=== PATIENT | female | born 1965 | race Caucasian/White ===

== ENCOUNTER 2016-09-06 19:57 | Emergency (ER) | payer MEDICAID ==
[~2016-09-06] VITALS: Ht 170.2 cm; Wt 92.4 kg
[~2016-09-06 19:57] MED LIST: AZIT-14 PO; BENZ2AMP4; CARV3.122 PO; CIPR400V6 PO; DOCU100C8 PO; GLYB1.252 PO; HALO5AMP3; HYDR-3144 PO; INSU100V8 SQ; LEVO100C2 PO; LORA-445 PO; METF10002 PO; PARO10TA24; [UNRECOGNIZED DRUG - CODE]
[2016-09-06] MEDS ORDERED: LORazepam 1MG TABLET PO ONE (20:30)
[2016-09-06] MEDS ORDERED: ASPIRIN 325 MG TABLET PO ONE (20:30)
[2016-09-06] MEDS ORDERED: LORazepam 1MG TABLET ONE (20:48)
[2016-09-06] MEDS ORDERED: ASPIRIN 325 MG TABLET ONE (20:50)
[2016-09-06 21:15] VITALS: BP 130/93
== END 2016-09-06 21:20 | disposition home or self-care (01) ==
LOC: ED 21:14
DX: S50.01XA Contusion of right elbow, initial encounter (principal); F41.1 Generalized anxiety disorder; F43.10 Post-traumatic stress disorder, unspecified; F15.10 Other stimulant abuse, uncomplicated; E07.9 Disorder of thyroid, unspecified; W45.8XXA Other foreign body or object entering through skin, initial encounter; Y93.89 Activity, other specified; Y92.009 Unspecified place in unspecified non-institutional (private) residence as the place of occurrence of the external cause; Y99.8 Other external cause status; Z88.1 Allergy status to other antibiotic agents; Z88.6 Allergy status to analgesic agent; Z88.8 Allergy status to other drugs, medicaments and biological substances
CPT/HCPCS: 99284

== ENCOUNTER 2017-03-13 20:26 | Emergency (ER) | payer MEDICAID ==
[~2017-03-13] VITALS: Ht 170.2 cm; Wt 93.0 kg
[~2017-03-13 20:26] MED LIST changes: -AZIT-14 PO; +AZIT250T89 PO; +DOCU100C33 PO; -DOCU100C8 PO; -HYDR-3144 PO; +HYDR-3245 PO; -PARO10TA24; +PARO10TA56
[2017-03-13] MEDS ORDERED: IBUPROFEN 200 MG TABLET ONE (21:11)
[2017-03-13 21:16] VITALS: BP 128/82
[2017-03-13] MEDS ORDERED: IBUPROFEN 200 MG TABLET PO ONE (21:30)
[2017-03-13 21:31] LABS: HEMATOCRIT 41.5 % (34.6-47.8); HEMOGLOBIN 13.9 g/dL (11.7-16.4); WHITE BLOOD COUNT 8.6 x10^3/uL (3.4-10)
[2017-03-13] MEDS ORDERED: DIPHENHYDRAMINE 25 MG CAPSULE ONE (21:57)
[2017-03-13] MEDS ORDERED: DIPHENHYDRAMINE 25 MG CAPSULE PO ONE (22:00)
== END 2017-03-13 22:11 | disposition home or self-care (01) ==
LOC: ED 21:02
DX: N75.1 Abscess of Bartholin's gland (principal)
CPT/HCPCS: 36415; 81003; 85025; 99284; Q0163

== ENCOUNTER 2018-05-15 22:04 | Emergency (ER) | payer MEDICAID ==
[~2018-05-15] VITALS: Ht 170.2 cm; Wt 104.7 kg
[2018-05-15 22:09] VITALS: BP 149/87
[2018-05-15] MEDS ORDERED: HALO5TAB5 PO (23:09)
[2018-05-15] MEDS ORDERED: BENZ-17 PO (23:09)
[2018-05-15] MEDS ORDERED: ATOR10TA9 PO (23:09)
[2018-05-15] MEDS ORDERED: NAPR-856 PO (23:09)
[2018-05-15] MEDS ORDERED: LEVO137T3 PO (23:09)
[2018-05-15] MEDS ORDERED: LORazepam 1MG TABLET ONE (23:16)
[2018-05-15] MEDS ORDERED: ZIPRASIDONE 20 MG INJ IM ONE ×2 (23:16→23:30)
[2018-05-15] MEDS ORDERED: LORazepam 1MG TABLET PO ONE (23:30)
[2018-05-15 23:38] LABS: BASOPHILS # (AUTO) 0.05 x10^3/uL (0-0.1); BASOPHILS % (AUTO) 0 % (0-1); EOSINOPHILS # (AUTO) 0.11 x10^3/uL (0-0.4); EOSINOPHILS % (AUTO) 1 % (1-7); LYMPHOCYTES # (AUTO) 2.85 x10^3/uL (1-3.4); LYMPHOCYTES % (AUTO) 25 % (22-44); MD NO; MEAN CORPUSCULAR HEMOGLOBIN 29.3 pg (27.0-34.8); MEAN CORPUSCULAR HGB CONC 33.9 g/dL (32.4-35.8); MEAN CORPUSCULAR VOLUME 86.3 fL (80-100); MEAN PLATELET VOLUME 6.8 fL (7.4-10.4); MONOCYTES # (AUTO) 0.69 x10^3/uL (0.2-0.8); MONOCYTES % (AUTO) 6 % (2-9); NEUTROPHILS # (AUTO) 7.88 x10^3/uL (1.8-6.8); NEUTROPHILS % (AUTO) 68 % (42-75); PLATELET COUNT 355 x10^3/uL (130-400); RED BLOOD COUNT 5.21 x10^6/uL (3.82-5.3); RED CELL DISTRIBUTION WIDTH 15.2 % (9.6-15.2)
[2018-05-15 23:48] LABS: ALANINE AMINOTRANSFERASE 38 U/L (12-78); ALBUMIN 3.2 g/dL (3.4-5.0); ANION GAP 5 mmol/L (5-15); CALCIUM 8.5 mg/dL (8.5-10.1); CHLORIDE 108 mmol/L (98-107); CREATININE 0.93 mg/dL (0.55-1.02)
[2018-05-15 23:51] LABS: ALKALINE PHOSPHATASE 105 U/L (45-117); BILIRUBIN,TOTAL 0.2 mg/dL (0.2-1.0)
== END 2018-05-16 01:13 | disposition home or self-care (01) ==
LOC: ED 22:17
DX: F41.1 Generalized anxiety disorder (principal); F15.20 Other stimulant dependence, uncomplicated; F43.12 Post-traumatic stress disorder, chronic; J44.9 Chronic obstructive pulmonary disease, unspecified; E78.00 Pure hypercholesterolemia, unspecified
CPT/HCPCS: 36415; 80053; 85025; 96372; 99283; J3486

== ENCOUNTER 2018-06-14 22:20 | Emergency (ER) | payer MEDICAID ==
[~2018-06-14] VITALS: Ht 170.2 cm; Wt 106.5 kg
[~2018-06-14 22:20] MED LIST changes: +ATOR10TA9 PO; +BENZ-17 PO; +HALO5TAB5 PO; +LEVO137T3 PO; +NAPR-856 PO
[2018-06-14 22:21] VITALS: BP 124/82
[2018-06-14] MEDS ORDERED: ZIPRASIDONE 20 MG INJ IM ONE ×2 (22:44→23:00)
--- NOTE | 2018-06-14 22:56 | NUR ---
PT MEDICATED WITH GEODON. PT REQUESTING ATIVAN. MD AWARE AND WILL NOT BE PRESCRIBING IT.
--- NOTE | 2018-06-14 23:25 | NUR ---
Patient given discharge instructions and they have confirmed that they understand the instructions. Patient ambulatory with steady gait.
== END 2018-06-14 23:28 | disposition home or self-care (01) ==
LOC: ED 22:50
DX: F41.1 Generalized anxiety disorder (principal); F15.10 Other stimulant abuse, uncomplicated; J44.9 Chronic obstructive pulmonary disease, unspecified
CPT/HCPCS: 96372; 99284; J3486

== ENCOUNTER → 2019-07-09 | Outpatient (CLI) | payer MEDICAID | END | disposition home or self-care (01) | LOC: CVU 07:09 | PROVIDERS: ATTEND Surgery | DX: I83.813 Varicose veins of bilateral lower extremities with pain (principal) | CPT/HCPCS: 93970 ==

== ENCOUNTER 2019-11-18 18:11 | Emergency (ER) | payer MEDICAID ==
[~2019-11-18] VITALS: Ht 172.7 cm; Wt 108.9 kg
--- NOTE | 2019-11-18 18:21 | NUR ---
PT AMBULATED BACK TO ROOM AND THEN TO BR WITHOUT DIFFICULTY. INSTRUCTED ON CLEAN CATCH URINE SAMPLE.
[2019-11-18 18:38] LABS: MICROSCOPIC NOT IND
[2019-11-18] MEDS ORDERED: KETOROLAC 30 MG/1 ML ONE ×2 (18:44→19:01)
[2019-11-18] MEDS ORDERED: CYCLOBENZAPRINE 10 MG TABLET ONE (18:44)
--- NOTE | 2019-11-18 18:46 | NUR ---
TASK RN: PT OFF FLOOR TO XRAY
[2019-11-18] MEDS ORDERED: KETOROLAC 30 MG/1 ML IM ONE (19:00)
[2019-11-18] MEDS ORDERED: CYCLOBENZAPRINE 10 MG TABLET PO ONE (19:00)
[2019-11-18 20:41] VITALS: BP 131/82
--- NOTE | 2019-11-18 20:43 | NUR ---
PT HAS BEEN RESTING IN [facility], STATES SHE FEELS A LITTLE BETTER AFTER MEDS. D/C INSTRUCTIONS, MEDS & F/U APPT RV'WD WITH PT, SHE VERBALIZES UNDERSTANDING. RX GIVEN X2. PT AMBULATED OUT OF ED WITHOUT DIFFICULTY.
== END 2019-11-18 20:44 | disposition home or self-care (01) ==
LOC: ED 20:35
DX: S39.012A Strain of muscle, fascia and tendon of lower back, initial encounter (principal); J44.9 Chronic obstructive pulmonary disease, unspecified; X58.XXXA Exposure to other specified factors, initial encounter; Y93.89 Activity, other specified; Y92.89 Other specified places as the place of occurrence of the external cause; Y99.8 Other external cause status
CPT/HCPCS: 72110; 81003; 96372; 99284; J1885

== ENCOUNTER 2019-11-30 10:30 | Emergency (ER) | payer MEDICAID ==
[~2019-11-30] VITALS: Ht 170.2 cm; Wt 110.0 kg
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
[2019-11-30 12:16] LABS: BASOPHILS # (AUTO) 0.04 x10^3/uL (0-0.1); BASOPHILS % (AUTO) 1 % (0-1); EOSINOPHILS % (AUTO) 1 % (1-7); LYMPHOCYTES # (AUTO) 1.97 x10^3/uL (1-3.4); LYMPHOCYTES % (AUTO) 26 % (22-44); MD NO; MEAN CORPUSCULAR HEMOGLOBIN 29.1 pg (27.0-34.8); MEAN CORPUSCULAR HGB CONC 32.9 g/dL (32.4-35.8); MEAN CORPUSCULAR VOLUME 88.3 fL (80-100); MEAN PLATELET VOLUME 7.7 fL (7.4-10.4); MONOCYTES # (AUTO) 0.65 x10^3/uL (0.2-0.8); MONOCYTES % (AUTO) 9 % (2-9); NEUTROPHILS # (AUTO) 4.87 x10^3/uL (1.8-6.8); NEUTROPHILS % (AUTO) 64 % (42-75); PLATELET COUNT 316 x10^3/uL (130-400); RED BLOOD COUNT 4.84 x10^6/uL (3.82-5.3); RED CELL DISTRIBUTION WIDTH 14.8 % (9.6-15.2)
[2019-11-30 12:24] LABS: ALANINE AMINOTRANSFERASE 25 U/L (12-78); ALBUMIN 3.5 g/dL (3.4-5.0); CALCIUM 9.7 mg/dL (8.5-10.1); CHLORIDE 110 mmol/L (98-107); CREATININE 0.83 mg/dL (0.55-1.02); SALICYLATE LEVEL 2.1 mg/dL (2.8-20.0)
--- NOTE | 2019-11-30 12:26 | NUR ---
ERICA COTTER AT BEDSIDE FOR EVAL AT THIS TIME.
[2019-11-30 12:30] LABS: ALKALINE PHOSPHATASE 97 U/L (45-117); BILIRUBIN,TOTAL 0.2 mg/dL (0.2-1.0)
[2019-11-30] MEDS ORDERED: NICOTINE 21 MG/24 HR PATCH.TD24 TD ONE (12:30)
[2019-11-30 12:31] LABS: ANION GAP 3 mmol/L (5-15)
[2019-11-30] MEDS ORDERED: LORazepam 1MG TABLET ONE (12:37)
[2019-11-30] MEDS ORDERED: NICOTINE 21 MG/24 HR PATCH.TD24 ONE (12:37)
[2019-11-30 12:54] VITALS: BP 165/103
--- NOTE | 2019-11-30 12:56 | NUR ---
PER ERICA COTTER PT MEDICATED ORDERED FOR ANXIETY. PT REPORTS SHE HAS SEVERAL DOCTOR'S APPOINTMENTS COMING UP INCLUDING A PSYCH CONSULT ON MONDAY. PT STATES "I THINK I'LL BE FINE UNTIL." PT DENIES SI/HI. PT AO X 4. SKIN PWD. RESP EVEN AND UNLABORED. PT ON CONT BP AND SPO2 MONITORS. CALL LIGHT WITHIN REACH. WILL CONT TO MONITOR PT.
[2019-11-30] MEDS ORDERED: LORazepam 0.5MG TABLET PO ONE (13:00)
[2019-11-30 13:18] LABS: AMPHETAMINE SCREEN, URINE Positive (Negative); BARBITURATE SCREEN, URINE Negative (Negative); BENZODIAZEPINE SCREEN, URINE Positive (Negative); CANNABINOID SCREEN, URINE Negative (Negative); COCAINE SCREEN, URINE Negative (Negative); METHADONE SCREEN, URINE Negative (Negative); OPIATE SCREEN, URINE Negative (Negative)
== END 2019-11-30 13:42 | disposition home or self-care (01) ==
LOC: ED 12:35
DX: F41.1 Generalized anxiety disorder (principal); F43.12 Post-traumatic stress disorder, chronic; F15.10 Other stimulant abuse, uncomplicated; J44.9 Chronic obstructive pulmonary disease, unspecified; E78.00 Pure hypercholesterolemia, unspecified; Z90.89 Acquired absence of other organs; Z98.51 Tubal ligation status
CPT/HCPCS: 36415; 80053; 80307; 85025; 99283